=== PATIENT | female | born 1965 | race Caucasian/White ===

== ENCOUNTER 2019-05-09 13:50 | Inpatient (IN) ==
[2019-05-09] MEDS ORDERED: SODIUM CHLORIDE 0.9% 1,000 ML IV STA (14:15)
[2019-05-09] MEDS ORDERED: ONDANSETRON 4 MG/2 ML VIAL IV STA (14:15)
[2019-05-09] MEDS ORDERED: HYDROmorphone 2 MG/1 ML VIAL IV STA (14:15)
[2019-05-09 14:58] LABS: Basophils % 0.2 % (0.0-0.8); Eosinophils % 0.2 % (0.00-10.9); Hematocrit 30.5 VOL% (35.7-47.0); Hemoglobin 10.1 GM/DL (12.0-16.0); Immature Granulocytes Absolute 0.19 #; Lymphocytes # 1.3 10*3/uL (1.4-4.0); Lymphocytes % 6.9 % (21.3-54.2); Mean Corpuscular HGB Conc 33.1 GM/DL (32-36); Mean Corpuscular Volume 88.9 FL (87-102); Mean Platelet Volume 9.3 FL (9.6-12.0); Neutrophils % 84.7 % (38.7-73.9); Platelet Count 496 T/CUMM (130-400); Red Blood Count 3.43 MC/CUMM (3.8-5.5); Red Cell Distribution Width 15.2 % (9.3-17.3); White Blood Count 19.1 T/CUMM (4-12)
[2019-05-09 15:17] LABS: Alanine Aminotransferase < 9 U/L (13-56); Albumin 2.7 G/DL (3.4-5.0); Alkaline Phosphatase 88 U/L (45-117); Aspartate Amino Transferase 6 U/L (0-37); Blood Urea Nitrogen 9 MG/DL (7-18); Calcium 8.5 MG/DL (8.5-10.1); Estimated Glom Filtration Rate 99 ML/MIN; Glucose 91 MG/DL (74-106); Osmolality,Calculated 266.2 MOS/KG (273-304); Total Protein 7.1 G/DL (6.4-8.3)
[2019-05-09 15:29] LABS: Apearance,Urine CLEAR (Clear); Bilirubin,Urine Negative (Negative); Blood, Urine Negative (Negative); Glucose,Urine (UA) Negative (Negative); Ketones,Urine 20 mg/dL (Negative); Mucus,Urine Moderate /LPF (Occasional); Nitrite,Urine Positive (Negative); Protein,Urine 100 MG/DL; RBC,Urine 8 /HPF (0-4); Squamous Epithelial Cell,Urine Occasional /HPF (0-10); Urine Color Red (Yellow); Urine Specific Gravity 1.025 (1.001-1.035); WBC,Urine 3 /HPF (0-6)
[2019-05-09] MEDS ORDERED: CLINDAMYCIN INJ 600 MG in PREMIX 1 EACH IV STA (17:32)
[2019-05-09] MEDS ORDERED: LEVOFLOXACIN INJ 500 MG in PREMIX 1 EACH IV STA (17:32)
[2019-05-09] MEDS ORDERED: HYDROCORTISONE 100 MG VIAL IV STA (17:36)
[2019-05-09] MEDS ORDERED: POTASSIUM CHLORIDE RIDER 10 MEQ in PREMIX 1 EACH IV PRN (19:19)
[2019-05-09] MEDS: CIPROFLOXACIN INJ 400 MG in PREMIX 1 EACH IV SCH (21:10)
[2019-05-09] MEDS: SODIUM CHLOR 0.9% KCL 20 MEQ 20 MEQ/1,000 ML BAG IV SCH (21:12)
[2019-05-09] MEDS: GABAPENTIN 600 MG TABLET PO SCH (21:12)
[2019-05-10] MEDS: metroNIDAZOLE INJ 500 MG in PREMIX 1 EACH IV SCH ×3 (00:10→16:15)
[2019-05-10] MEDS: HYDROCORTISONE 100 MG VIAL IV SCH ×3 (02:30→17:46)
[2019-05-10 04:44] LABS: Basophils % 0.2 % (0.0-0.8); Hematocrit 29.8 VOL% (35.7-47.0); Immature Granulocytes Absolute 0.18 #; Lymphocytes # 1.1 10*3/uL (1.4-4.0); Lymphocytes % 5.8 % (21.3-54.2); Mean Corpuscular HGB Conc 30.2 GM/DL (32-36); Mean Corpuscular Volume 93.7 FL (87-102); Mean Platelet Volume 9.6 FL (9.6-12.0); Monocytes % 4.8 % (1.7-12.7); Neutrophils % 88.2 % (38.7-73.9); Platelet Count 514 T/CUMM (130-400); Red Blood Count 3.18 MC/CUMM (3.8-5.5); Red Cell Distribution Width 15.1 % (9.3-17.3); White Blood Count 18.7 T/CUMM (4-12)
[2019-05-10 04:45] LABS: Basophils % 0.2 % (0.0-0.8); Hemoglobin 9.2 GM/DL (12.0-16.0); Immature Granulocytes % 0.9 %; Immature Granulocytes Absolute 0.18 #; Lymphocytes # 1.1 10*3/uL (1.4-4.0); Lymphocytes % 5.6 % (21.3-54.2); Mean Corpuscular HGB Conc 31.7 GM/DL (32-36); Mean Corpuscular Volume 91.5 FL (87-102); Mean Platelet Volume 9.6 FL (9.6-12.0); Monocytes % 4.5 % (1.7-12.7); Neutrophils % 88.8 % (38.7-73.9); Platelet Count 510 T/CUMM (130-400); Red Blood Count 3.17 MC/CUMM (3.8-5.5)
[2019-05-10 05:21] LABS: Calcium 8.6 MG/DL (8.5-10.1); Osmolality,Calculated 272.8 MOS/KG (273-304)
[2019-05-10 05:35] LABS: Folate 9.3 NG/ML (5.4-24.0); Vitamin B12 1133 PG/ML (211-911)
[2019-05-10 06:08] LABS: Sedimentation Rate-Westergren 121 MM/HR (0-30)
[2019-05-10] MEDS: SODIUM CHLOR 0.9% KCL 20 MEQ 20 MEQ/1,000 ML BAG IV SCH ×3 (07:05→18:00)
[2019-05-10] MEDS: GABAPENTIN 600 MG TABLET PO SCH ×4 (08:37→20:43)
[2019-05-10 09:19] LABS: Hemoglobin A1 (Alkaline) 97.3 % (96.5-98.5); Hemoglobin A2 (Alkaline) 2.7 % (1.5-3.5)
[2019-05-10] MEDS: CIPROFLOXACIN INJ 400 MG in PREMIX 1 EACH IV SCH ×2 (09:43→20:43)
[2019-05-11] MEDS: metroNIDAZOLE INJ 500 MG in PREMIX 1 EACH IV SCH ×3 (00:54→16:22)
[2019-05-11] MEDS: HYDROCORTISONE 100 MG VIAL IV SCH ×2 (02:30→11:08)
[2019-05-11 05:23] LABS: Basophils % 0.1 % (0.0-0.8); Hematocrit 26.6 VOL% (35.7-47.0); Hemoglobin 8.2 GM/DL (12.0-16.0); Immature Granulocytes % 0.7 %; Immature Granulocytes Absolute 0.08 #; Lymphocytes % 8.1 % (21.3-54.2); Mean Corpuscular HGB Conc 30.8 GM/DL (32-36); Mean Platelet Volume 9.8 FL (9.6-12.0); Monocytes % 3.2 % (1.7-12.7); Neutrophils % 87.9 % (38.7-73.9); Platelet Count 516 T/CUMM (130-400); Red Blood Count 2.86 MC/CUMM (3.8-5.5); Red Cell Distribution Width 15.2 % (9.3-17.3); White Blood Count 12.2 T/CUMM (4-12)
[2019-05-11 05:50] LABS: Calcium 8.5 MG/DL (8.5-10.1); Osmolality,Calculated 285.1 MOS/KG (273-304)
[2019-05-11] MEDS: SODIUM CHLOR 0.9% KCL 20 MEQ 20 MEQ/1,000 ML BAG IV SCH ×2 (08:33→09:28)
[2019-05-11] MEDS: GABAPENTIN 600 MG TABLET PO SCH ×2 (09:32→13:20)
[2019-05-11] MEDS: CIPROFLOXACIN INJ 400 MG in PREMIX 1 EACH IV SCH (11:16)
[2019-05-11 11:26] VITALS: BP 133/95
== END 2019-05-11 15:56 | disposition home or self-care (01) | DRG 392 ==
LOC: EDBD → EDUNIT# → N.ED 13:50 → N.EDINP 18:23 → N.3E 18:45
PROVIDERS: ADMIT Internal Medicine; ATTEND Internal Medicine